=== PATIENT | female | born 2000 | race Caucasian/White ===

== ENCOUNTER 2023-05-03 09:54 | Emergency (ER) | payer OTHER ==
[~2023-05-03] VITALS: Ht 162.6 cm; Wt 54.4 kg
[2023-05-03] MEDS ORDERED: ONDANSETRON HCL 2 MG/ML VIAL IV STA (10:56)
[2023-05-03] MEDS ORDERED: 0.9 % SODIUM CHLORIDE 1,000 ML IV STA (10:56)
[2023-05-03] MEDS ORDERED: FAMOTIDINE/PF 20 MG/2 ML VIAL IV STA (10:57)
[2023-05-03 11:47] LABS: HEMATOCRIT 45.5 % (36.0-45.00); HEMOGLOBIN 15.7 g/dL (12.0-15.00); MEAN CELL VOLUME 88.9 fL (80.00-100.00); MEAN CORPUSCULAR HEMOGLOBIN 30.6 pg (27.00-32.0); MEAN CORPUSCULAR HGB CONC 34.4 g/dl (32.0-36.0); PLATELET COUNT 301 K/uL (150-450); RED BLOOD COUNT 5.12 M/uL (4.00-6.00); RED CELL DISTRIBUTION WIDTH 13.1 % (11.5-14.5)
[2023-05-03 13:04] LABS: BILIRUBIN TOTAL 1.37 mg/dL (0.3-1.2); CALCIUM 9.5 mg/dL (8.5-10.1); CREATININE SERUM 0.82 mg/dL (0.55-1.02); GFR 88.88; POTASSIUM 4.12 mEq/L (3.5-5.1)
== END 2023-05-03 14:58 | disposition home or self-care (01) ==
LOC: EMR PED 09:54 → ER 09:54 → EMR PED 11:17
PROVIDERS: Emergency Medicine
DX: R11.10 Vomiting, unspecified (principal); Z20.822 Contact with and (suspected) exposure to COVID-19